=== PATIENT | male | born 2000 | race Two or more races ===

== ENCOUNTER 2025-03-06 04:55 | Emergency (ER) | payer OTHER ==
[~2025-03-06] VITALS: Ht 180.3 cm; Wt 174.6 kg
[2025-03-06 05:07] VITALS: BP 148/84; TEMP 98; O2SAT 99
[2025-03-06] MEDS ORDERED: OXYC5TAB3 PO (05:11)
[2025-03-06] MEDS ORDERED: AMOX-430 PO (05:12)
[2025-03-06] MEDS ORDERED: NAPR-1143 PO (05:12)
[2025-03-06] MEDS ORDERED: ACET-3102 PO (05:12)
== END 2025-03-06 05:17 | disposition home or self-care (01) ==
LOC: ER 05:01
DX: K02.9 Dental caries, unspecified (principal)